=== PATIENT | male | born 2000 | race Caucasian/White ===

== ENCOUNTER 2022-01-18 11:33 | Emergency (ER) | payer OTHER ==
[~2022-01-18] VITALS: Ht 172.7 cm; Wt 74.5 kg
[2022-01-18 11:34] VITALS: BP 134/60
[2022-01-18] MEDS ORDERED: ACETAMINOPHEN 325 MG TAB PO ONE (12:50)
== END 2022-01-18 13:19 | disposition home or self-care (01) ==
LOC: M ED 11:33
DX: M25.561 Pain in right knee (principal); W20.8XXA Other cause of strike by thrown, projected or falling object, initial encounter; F17.200 Nicotine dependence, unspecified, uncomplicated; Z88.0 Allergy status to penicillin; Y99.0 Civilian activity done for income or pay